=== PATIENT | male | born 1995 | race Asian ===

== ENCOUNTER 2016-07-31 21:37 | Emergency (ER) | payer OTHER ==
[2016-07-31 21:44] VITALS: RESP 16; TEMP 97.9
--- NOTE | 2016-07-31 22:24 | EDPHY ---
H & P Stated Complaint: rectal bleeding/pain Time Seen by Provider: 07/31/16 21:55 HPI/ROS: Chief Complaint: Rectal pain HPI: 21-year-old male who is noticed swelling in his rectal area for past the 4 days which is painful. Also noticed some blood around his stool. Does not have a history of the same. Has a little bit of pain with passing a bowel movement. Does not have a history of extremely hard stools or significant straining with passing a bowel movement. Does not feel constipated or that he is holding his stool in because of the pain. ROS: 10 point Review of Systems is negative except as noted in the HPI. PMH: Acne Medications: Minocycline Allergies no known drug allergies Social History: Positive smoking, no alcohol, no recreational drug use Family History: non-contributory Physical Exam: Gen: Awake, Alert, No Distress HEENT: Nose: no rhinorrhea Eyes: PERRLA, EOMI Mouth: Moist mucosa Neck: Supple, no JVD Chest: nontender, lungs clear to auscultation Heart: S1, S2 normal, no murmur Abd: Soft, non-tender, no guarding Rectal: He has a noticeable hemorrhoids, primarily in the 2 o'clock position. It is swollen but not thrombosed at this time. It is moderately tender to the touch. There is no active bleeding. Back: no CVA tenderness, no midline tenderness Ext: no edema, non-tender Skin: no rash Neuro: CN II-XII intact, Sensation grossly intact, Strength 5/5 in bilateral upper and lower extremities - Personal History Current Tetanus/Diphtheria Vaccine: Unsure - Medical/Surgical History Hx Asthma: No Hx Chronic Respiratory Disease: No Hx Diabetes: No Hx Cardiac Disease: No Hx Renal Disease: No Hx Cirrhosis: No Hx Alcoholism: No Hx HIV/AIDS: No Hx Splenectomy or Spleen Trauma: No Other PMH: PMHx: G6PD deficiency. PSHx: Cholecystectomy - Social History Smoking Status: Current every day smoker Constitutional: Initial Vital Signs Temperature (C) 36.6 C 07/31/16 21:42 Heart Rate 80 07/31/16 21:42 Respiratory Rate 16 07/31/16 21:42 Blood Pressure 138/58 H 07/31/16 21:42 O2 Sat (%) 98 07/31/16 21:42 O2 Delivery Mode Room Air Allergies/Adverse Reactions: aspirin Allergy (Verified 11/18/14 10:27) peanut Allergy (Verified 11/18/14 10:27) G6PD Allergy (Uncoded 11/18/14 10:27) Home Medications: Medication Instructions Recorded Hydrocortisone Acetate [Anucort-Hc] 25 mg RC BID #14 supp.rect 07/31/16 Minocycline HCl 07/31/16 Medical Decision Making - Data Points Medications Given: Discontinued Medications Hydrocodone Bitart/Acetaminophen ([place] 5/325mg Prepack#6) 1 btl TAKEHOME EDNOW ONE Stop: 07/31/16 22:31 Last Admin: 07/31/16 22:50 Dose: 1 btl Departure - Departure Disposition: Home, Routine, Self-Care Clinical Impression: Hemorrhoid Condition: Good Instructions: Hydrocodone/Acetaminophen (By mouth), Hemorrhoids (ED) Additional Instructions: Soak rectal area is Sitz bath as at least 2 to 3 times a day. You may apply rectal medicine twice a day the next week. He may take hydrocodone as needed for pain the next 2 days, then take ibuprofen alternating with acetaminophen. Purchase a donut shaped pillow from the pharmacy tomorrow. Follow up with primary care physician and about a week if symptoms are not improving. Referrals: NONE *PRIMARY CARE P,. [Primary Care Provider] - As per Instructions Cristela Bond MD [Medical Doctor] - As per Instructions Prescriptions: Hydrocortisone Acetate [Anucort-Hc] 25 mg RC BID #14 supp.rect
[2016-07-31] MEDS ORDERED: HYDROCOD/APAP 5/325 PREPACK#6 BTL TAKEHOME ONE (22:30)
[2016-07-31 23:15] VITALS: BP 130/77; PULSE 71; O2SAT 95
== END 2016-07-31 23:17 | disposition home or self-care (01) ==
DX: K64.9 Unspecified hemorrhoids (principal); F17.200 Nicotine dependence, unspecified, uncomplicated; Z91.010 Allergy to peanuts

== ENCOUNTER 2017-01-04 20:15 | Emergency (ER) | payer OTHER ==
[2017-01-04 20:22] VITALS: BP 124/82; PULSE 77; RESP 18; TEMP 98.6; O2SAT 97
[2017-01-04] MEDS ORDERED: HYOSCYAMINE SULFATE 0.125 MG TAB PO ONE (20:35)
[2017-01-04] MEDS ORDERED: LIDOCAINE 2% VISCOUS 15 ML UDCUP PO ONE (20:35)
[2017-01-04] MEDS ORDERED: MAG HYDROX/AL HYDROX/SIMETH 30 ML UDCUP PO ONE (20:35)
--- NOTE | 2017-01-04 21:16 | EDPHY ---
H & P Time Seen by Provider: 01/04/17 20:32 HPI/ROS: CHIEF COMPLAINT: Acid reflux HISTORY OF PRESENT ILLNESS: 22-year-old male presents to the emergency department with burning sensation in his chest. He has a history of acid reflux. He has been taking omeprazole as prescribed for the last 2 weeks with only minimal improvement. 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 He smokes cigarettes and drinks large amount of coffee. Denies any reported trauma. No other chest pain or difficulty breathing. No fevers or chills. No neck or back pain. REVIEW OF SYSTEMS: Constitutional: No fever, no chills. Eyes: No double or blurry vision. ENT: No sore throat. Respiratory: No cough, no shortness of breath. Cardiac: No chest pain. Gastrointestinal: As above. No vomiting or diarrhea. Genitourinary: No dysuria. Musculoskeletal: No neck or back pain. Skin: No rashes. Neurological: No headache. Past Medical/Surgical History: GERD, smoker Social History: [employer] student Smoking Status: Current every day smoker Physical Exam: General Appearance: Alert, no distress. Eyes: Pupils equal and round. Extraocular motions are all intact. ENT: Mouth: Mucous membranes moist. Respiratory: No wheezing, rhonchi, or rales, lungs are clear to auscultation. Cardiovascular: Regular rate and rhythm. Gastrointestinal: Abdomen is soft and nontender, no masses, no rebound or guarding, bowel sounds normal. Neurological: Alert and oriented x 3, cranial nerves II through XII grossly intact Skin: Warm and dry, no rashes. Musculoskeletal: Nontender to palpate along the cervical, thoracic or lumbar spine. Neck is supple. Extremities: Full range of motion and no peripheral edema. Psychiatric: Patient is oriented X 3, there is no agitation. Constitutional: Initial Vital Signs Temperature (C) 37 C 01/04/17 20:18 Heart Rate 77 01/04/17 20:18 Respiratory Rate 18 01/04/17 20:18 Blood Pressure 124/82 H 01/04/17 20:18 O2 Sat (%) 97 01/04/17 20:18 O2 Delivery Mode Room Air Allergies/Adverse Reactions: aspirin Allergy (Verified 11/18/14 10:27) peanut Allergy (Verified 11/18/14 10:27) G6PD Allergy (Uncoded 11/18/14 10:27) Home Medications: Medication Instructions Recorded Esomeprazole Magnesium 01/04/17 Medical Decision Making ED Course/Re-evaluation: 22-year-old male presents to the emergency department with acid reflux. Patient was given a GI cocktail and his symptoms completely resolved. I do not think laboratory studies or imaging studies are indicated. Patient has a normal examination. I encouraged close follow-up with head start teacher. I encouraged him to continue omeprazole, [id number] Pepcid, and to use Maalox as needed. I also encouraged him to stop smoking and to discontinue caffeine and coffee or any other irritants. Differential Diagnosis: Including but not limited to GERD, peptic ulcer disease, pancreatitis, cholecystitis, cholelithiasis - Data Points Medications Given: Discontinued Medications Al Hydroxide/Mg Hydroxide (Maalox Susp) 30 ml PO ONCE ONE Stop: 01/04/17 20:36 Last Admin: 01/04/17 20:50 Dose: 30 ml Hyoscyamine Sulfate (Levsin, Hyomax-Sl) 0.25 mg PO ONCE ONE Stop: 01/04/17 20:36 Last Admin: 01/04/17 20:50 Dose: 0.25 mg Lidocaine (Lidocaine 2% Viscous) 15 ml PO ONCE ONE Stop: 01/04/17 20:36 Last Admin: 01/04/17 20:50 Dose: 15 ml Departure - Departure Disposition: Home, Routine, Self-Care Clinical Impression: GERD (gastroesophageal reflux disease) Qualifiers: Esophagitis presence: esophagitis presence not specified Qualified Code(s): K21.9 - Gastro-esophageal reflux disease without esophagitis Condition: Good Instructions: Gastroesophageal Reflux Disease (ED) Additional Instructions: Stop smoking. You should not drink coffee or eat anything that causes pain in your stomach. You may also try [id number] Pepcid 20 mg daily. You may also use Maalox, [id number], for relief of heartburn especially right before meals. You should follow up with head start teacher. Referrals: Ayan Mock MD [Medical Doctor] - As per Instructions (head start teacher senior telecommunications specialist )
== END 2017-01-04 21:15 | disposition home or self-care (01) ==
DX: K21.9 Gastro-esophageal reflux disease without esophagitis (principal); F17.210 Nicotine dependence, cigarettes, uncomplicated; Z91.010 Allergy to peanuts

== ENCOUNTER 2017-01-16 21:13 | Emergency (ER) | payer OTHER ==
--- NOTE | 2017-01-16 21:56 | CPEKG ---
Heart Rate: 72 RR Interval: 833 P-R Interval: 136 QRSD Interval: 94 QT Interval: 360 QTC Interval: 394 P [place]: 67 QRS [place]: 78 T Wave [place]: 55 EKG Severity - NORMAL ECG - EKG Impression: SINUS RHYTHM Electronically Signed By: Ashley Keene 16-Jan-2017 23:06:02
[2017-01-16] MEDS ORDERED: LIDOCAINE 2% VISCOUS 15 ML UDCUP PO ONE (22:14)
[2017-01-16] MEDS ORDERED: FAMOTIDINE 20 MG/NACL 50 ML IV ONE (22:14)
[2017-01-16] MEDS ORDERED: MAG HYDROX/AL HYDROX/SIMETH 30 ML UDCUP PO ONE (22:14)
[2017-01-16] MEDS ORDERED: PANTOPRAZOLE SODIUM 40 MG VIAL IVP ONE (22:15)
--- NOTE | 2017-01-16 22:22 | EDPHY ---
H & P Time Seen by Provider: 01/16/17 21:41 HPI/ROS: HPI Heartburn, chest discomfort. 22-year-old male by private vehicle. This patient has a history of esophageal reflux. He has a appointment to see Dr. Mitchell at [facility] on Saturday of next week. He presents complaining of typical burning sensation radiating up from his stomach into his esophagus. He has had this for months. He has been taking oral Pepcid but with no relief. He reports that he was on a proton pump inhibitor a while back but has stopped taking this medication. No vomiting. No fever. No other complaints. ROS: Constitutional: No fever, no chills. No weakness. Eyes: No discharge. No changes in vision. ENT: No sore throat. No nasal congestion or rhinorrhea. Respiratory: No cough. No shortness of breath. Cardiac: As above, no palpitations. Gastrointestinal: No abdominal pain, no vomiting, no diarrhea. As above. Genitourinary: No hematuria. No dysuria or increased frequency with urination. Musculoskeletal: No back pain. No neck pain. No myalgias or arthralgias. Skin: No rashes. Neurological: No headache. No focal weakness or altered sensation. Past medical history: Cholecystectomy, G6 PD deficiency. As above. Social history: Student [employer]. Nonsmoker. Denies alcohol. Physical Exam: General Appearance: Alert, no distress. This patient is responding to questions appropriately and in full sentences. This patient appears well- hydrated and well-nourished. Eyes: Pupils equal and round no pallor or injection. No lid edema, erythema or injection. Respiratory: There are no retractions, lungs are clear to auscultation with good air movement bilaterally. Cardiovascular: Regular rate and rhythm. No murmur. Gastrointestinal: Abdomen is soft and nontender, no masses, bowel sounds normal. No focal tenderness at McBurney's point. No Tapia sign. Neurological: Motor sensory function is grossly intact. Cranial nerves are normal. Gait is normal. Skin: Warm and dry, no rashes. Musculoskeletal: Neck is supple and nontender. Extremities are symmetrical. All joints range without pain or impingement. Psychiatric: No agitation. No depression. Database: EKG: EKG time is 9:54 p.m.; EKG shows a narrow complex normal sinus rhythm with a ventricular rate of 72. The DE, QRS, QT intervals are within normal limits. There are no ST-T wave changes indicative of ischemic or injury pattern. No evidence of right heart strain. Interpreted by me. Imaging: Chest x-ray PA and lateral; the cardiac mediastinal silhouette is unremarkable. No evidence of infiltrate or pneumothorax. No acute cardiopulmonary disease process noted. Interpreted by me. Procedures: Emergency department course: IV placed in triage. Vital signs reviewed and are normal. After my evaluation the patient was given 40 mg of IV Protonix, 20 mg of IV Pepcid and a GI cocktail. 10:45 p.m., patient re-evaluated. Resting comfortably at this time. He reports feeling better. Results of his x-ray and EKG discussed with him. He feels comfortable going home at this time. I will prescribe him Protonix. He will follow up with his stogy maker as scheduled on Saturday. Return to emergency department precautions reviewed with him. All of his questions were answered. He was discharged in good condition. Differential Diagnosis: The differential diagnosis on this patient includes but is not limited to GERD. Acute coronary syndrome, pneumomediastinum, aortic dissection, pulmonary embolism, myocarditis, pericarditis unlikely. This represents a partial list of diagnoses considered. These considerations are based on history, physical exam, past history, reassessment and diagnostic testing. Smoking Status: Current every day smoker Constitutional: Initial Vital Signs Temperature (C) 36.7 C 01/16/17 21:17 Heart Rate 61 01/16/17 21:17 Respiratory Rate 16 01/16/17 21:17 Blood Pressure 129/63 H 01/16/17 21:17 O2 Sat (%) 99 01/16/17 21:17 O2 Delivery Mode Room Air Allergies/Adverse Reactions: aspirin Allergy (Verified 11/18/14 10:27) peanut Allergy (Verified 11/18/14 10:27) G6PD Allergy (Uncoded 11/18/14 10:27) Home Medications: Medication Instructions Recorded Pantoprazole Sodium [Protonix] 40 mg PO DAILY #30 tab 01/16/17 Pepcid 01/16/17 Medical Decision Making - Diagnostics Imaging Results: Imaging Impressions Chest X-Ray 01/16/17 21:42 Impression: Normal. No acute process. Departure - Departure Disposition: Home, Routine, Self-Care Clinical Impression: GERD (gastroesophageal reflux disease) Condition: Good Instructions: Gastroesophageal Reflux Disease (ED) Additional Instructions: Read and follow provided instructions. Follow-up with your stogy maker as scheduled on Saturday for re-evaluation and ongoing management of your esophageal reflux. Take medication as prescribed. Return to the emergency department for worsening symptoms or other serious concerns. Referrals: Ayan Mock MD [Medical Doctor] - As per Instructions Prescriptions: Pantoprazole Sodium [Protonix] 40 mg PO DAILY #30 tab
[2017-01-16 22:53] VITALS: BP 115/77; PULSE 69; RESP 14; TEMP 97.9; O2SAT 96
== END 2017-01-16 22:53 | disposition home or self-care (01) ==
DX: K21.9 Gastro-esophageal reflux disease without esophagitis (principal); F17.200 Nicotine dependence, unspecified, uncomplicated; Z91.010 Allergy to peanuts
CPT/HCPCS: 96365

== ENCOUNTER 2017-06-06 21:00 | Emergency (ER) | payer OTHER ==
[2017-06-06 21:06] VITALS: BP 140/70
--- NOTE | 2017-06-06 21:30 | EDPHY ---
H & P Time Seen by Provider: 06/06/17 21:15 HPI/ROS: CHIEF COMPLAINT: Right-side flank pain, right thumb pain HISTORY OF PRESENT ILLNESS: The patient is a 22 y/o male complaining of right sided back pain, onset 2 days ago. He awoke 2 days ago with urinary frequency and right sided back pain. The urinary frequency resolved but the pain has worsened over the past 2 days. The right flank pain worsens with coughing, sneezing, and other movements. He denies pain to palpation. He denies recent trauma. He denies any hematuria, diarrhea, urinary incontinence, abdominal pain , or any other associated symptoms. In addition, he has had ongoing pain in his right thumb for several weeks after a fall. He was not seen after the fall. Pain occurs when moving his thumb. He denies swelling or any other associated symptoms. REVIEW OF SYSTEMS: A 10 point review of systems was performed and is negative with the exception of the elements mentioned in the history of present illness. Past Medical/Surgical History: 1. Cholecystectomy 2. G6PD deficiency Social History: Lives in [place], student at [employer], smoker Smoking Status: Current every day smoker Physical Exam: General Appearance: Alert, pleasant Eyes: Pupils equal and round ENT, Mouth: Mucous membranes moist Neck: Normal inspection Respiratory: normal respiratory rate/effort Cardiovascular: Regular rate and rhythm Gastrointestinal: Abdomen is soft and non-tender Back: Normal inspection, tender over the the right paraspinous musculature, no CVAT Neurological: A&O, nonfocal exam Skin: Warm and dry Extremities: right thumb: normal inspection, tenderness over right IP joint, pain with IP ROM, no compression tenderness, no snuffbox tenderness Psychiatric: Mood and affect normal Constitutional: Initial Vital Signs Temperature (C) 36.8 C 06/06/17 21:04 Heart Rate 88 06/06/17 21:04 Respiratory Rate 16 06/06/17 21:04 Blood Pressure 140/70 H 06/06/17 21:04 O2 Sat (%) 98 06/06/17 21:04 O2 Delivery Mode Room Air Allergies/Adverse Reactions: aspirin Allergy (Verified 11/18/14 10:27) peanut Allergy (Verified 11/18/14 10:27) G6PD Allergy (Uncoded 11/18/14 10:27) Home Medications: Medication Instructions Recorded NK [No Known Home Meds] 06/06/17 Medical Decision Making - Diagnostics Imaging Results: right thumb xray: NAD Imaging: I viewed and interpreted images myself ED Course/Re-evaluation: The patient presents with back pain with movement, coughing, or sneezing. No pain to palpation. In addition, he has pain in his right IP joint after a fall several weeks ago. Plan for X-ray of thumb and urinalysis. Urinalysis is negative. No evidence of UTI/pyelo/kidney stone. X-ray is normal. No evidence of fx. He will return home with instructions to take ibuprofen for musculoskeletal back pain and thumb sprain. Follow up with his PCP for continued symptoms. The patient agrees to this course of action. Departure - Departure Disposition: Home, Routine, Self-Care Clinical Impression: Low back strain Qualifiers: Encounter type: initial encounter Qualified Code(s): S39.012A - Strain of muscle, fascia and tendon of lower back, initial encounter Thumb contusion Qualifiers: Encounter type: initial encounter Damage to nail status: without damage Laterality: right Qualified Code(s): S60.011A - Contusion of right thumb without damage to nail, initial encounter Condition: Good Instructions: Low Back Strain (ED) Additional Instructions: 1. Take 600 mg ibuprofen with food every 8 hours as needed for pain. 2. Follow up with your primary care provider for continued symptoms in 2 to 3 days. 3. Return to the emergency department for any worsening of condition. Referrals: [facility],. [Clinic] - As per Instructions Logan Tejeda MD [Medical Doctor] - As per Instructions Report Scribed for: Regla Junior Report Scribed by: Lara Garcia Date of Report: 06/06/17 Time of Report: 22:03 Physician Review and Approval Statement: 06/06/17 22:04 Portions of this note were transcribed by a medical field representative. I personally performed a history, physical exam, medical decision making, and confirmed accuracy of information the transcribed note.
== END 2017-06-06 22:14 | disposition home or self-care (01) ==
DX: S39.012A Strain of muscle, fascia and tendon of lower back, initial encounter (principal); S60.011A Contusion of right thumb without damage to nail, initial encounter; F17.200 Nicotine dependence, unspecified, uncomplicated; Z90.49 Acquired absence of other specified parts of digestive tract; Z91.010 Allergy to peanuts; W18.39XA Other fall on same level, initial encounter

== ENCOUNTER 2017-07-25 20:36 | Emergency (ER) | payer OTHER ==
--- NOTE | 2017-07-25 20:46 | EDPHY ---
H & P Stated Complaint: back pain, nausea, generalized weakness Time Seen by Provider: 07/25/17 20:45 HPI/ROS: HPI: This is a 22-year-old male who presents with Chief Complaint: back pain, nausea, generalized weakness Location: Abdomen Quality: Nausea, vomiting, diarrhea Duration: 2 days Signs and Symptoms: no fever, + nausea, + vomiting, no hematemesis, no blood in stool, no abdominal bloating, + diarrhea, no back pain, no urinary symptoms, no testicular/groin pain, no indigestion, no chest pain, no shortness of breath Timing: Improving Severity: Moderate Context: Patient is the [employer] student presents yesterday with sudden onset of nausea, body aches and chills accompanied by 2 episodes of vomiting yesterday and 1 episode of vomiting today. Patient reports that he had 2 loose stools yesterday and 1 loose stool today. Due to his nausea he is only able to drink 1 cup of water. He denies any recent foreign travel. Denies any recent antibiotic use. Patient reports that he has a very strict vegan diet and does not believe that he has had any food borne illnesses. Denies any urinary symptoms. Last urination was approximately 2 hr prior to arrival in the emergency room. Denies hematuria/penile discharge. Modifying Factors: None Comment: ROS: see HPI Constitutional: No fever, no chills, no weight loss Eyes: No blurred vision Respiratory: No shortness of breath, no cough Cardiovascular: No chest pain, no palpitations Gastrointestinal: + nausea, + vomiting, + diarrhea, no hematemesis, no blood in stool Genitourinary: No dysuria, no blood in urine Extremities: No myalgias, no edema Neurologic: No weakness, no numbness Skin: No rashes, no petechiae Hematologic: No bruising, no bleeding MEDICAL/SURGICAL/SOCIAL HISTORY: PMHx: G6PD deficiency PSHx: Cholecystectomy Social history: [employer]. Family history noncontributory. CONSTITUTIONAL: Extremely well-appearing young adult male, awake and alert, no obvious distress HEENT: Atraumatic and normocephalic, PERRL, EOMI. Nares patent; no rhinorrhea; no nasal mucosal edema. Tympanic membranes clear. Oropharynx clear, no exudate and moist pink mucosa. Airway patent. No lymphadenopathy. No meningismus. Cardiovascular: Normal S1/S2, regular rate, regular rhythm, without murmur rub or gallop. PULMONARY/CHEST: Symmetrical and nontender. Clear to auscultation bilaterally. Good air movement. No accessory muscle usage. ABDOMEN: Soft, nondistended, nontender, no rebound, no guarding, no peritoneal signs, no masses or organomegaly. No CVAT. EXTREMITIES: 2/2 pulses, strength 5/5, no deformities, no clubbing, no cyanosis or edema. NEUROLOGICAL: no focal neuro deficits. GCS 15. SKIN: Warm and dry, no erythema. no rash. Good capillary refill. Source: Patient, Old records Exam Limitations: No limitations - Personal History Current Tetanus Diphtheria and Acellular Pertussis (TDAP): Yes Tetanus Vaccine Date: 2014 - Medical/Surgical History Hx Asthma: No Hx Chronic Respiratory Disease: No Hx Diabetes: No Hx Cardiac Disease: No Hx Renal Disease: No Hx Cirrhosis: No Hx Alcoholism: No Hx HIV/AIDS: No Hx Splenectomy or Spleen Trauma: No Other PMH: PMHx: G6PD deficiency. PSHx: Cholecystectomy - Social History Smoking Status: Current every day smoker Constitutional: Initial Vital Signs Temperature (C) 37.1 C 07/25/17 20:39 Heart Rate 81 07/25/17 20:39 Respiratory Rate 20 07/25/17 20:39 Blood Pressure 130/98 H 07/25/17 20:39 O2 Sat (%) 98 07/25/17 20:39 O2 Delivery Mode Room Air Allergies/Adverse Reactions: aspirin Allergy (Verified 07/25/17 20:39) peanut Allergy (Verified 07/25/17 20:39) G6PD Allergy (Uncoded 11/18/14 10:27) Home Medications: Medication Instructions Recorded Promethazine HCl 25 mg PO Q6 PRN #12 tablet 07/25/17 Medical Decision Making ED Course/Re-evaluation: Labs, IV fluids, IV medications given Vital signs reviewed upon arrival in show no systemic signs. Afebrile. Patient's abdomen is soft and nontender. Doubt surgical abdomen. Will not order abdominal imaging. 2054: Given 1 L normal saline and IV promethazine 12.5 mg 2136: Labs reviewed. No signs of leukocytosis/anemia/BRIANNA/elevated LFTs/ electrolyte imbalance/pancreatitis. 2217: Passed p.o. Trial. Reassessed abdomen continues to be soft and nontender. Discharged home with supportive care. Given prepack for Zofran and prescription for Phenergan. This patient was seen under the supervision of my secondary supervising physician. I evaluated care for this patient independently. Differential Diagnosis: Abdominal pain including but not limited to appendicitis, cholecystitis, gastritis and urinary tract infection. - Data Points Laboratory Results: Laboratory Results 07/25/17 20:55 07/25/17 20:55 07/25/17 07/25/17 20:55 20:55 WBC 5.16 10^3/uL 10^3/uL (3.80-9.50) RBC 5.51 10^6/uL 10^6/uL (4.40-6.38) Hgb 16.0 g/dL g/dL (13.7-17.5) Hct 48.5 % % (40.0-51.0) MCV 88.0 fL fL (81.5-99.8) MCH 29.0 pg pg (27.9-34.1) MCHC 33.0 g/dL g/dL (32.4-36.7) RDW 12.1 % % (11.5-15.2) Plt Count 189 10^3/uL 10^3/uL (150-400) MPV 11.5 fL fL (8.7-11.7) Neut % (Auto) 57.1 % % (39.3-74.2) Lymph % (Auto) 34.5 % % (15.0-45.0) Carroll % (Auto) 6.2 % % (4.5-13.0) Eos % (Auto) 1.4 % % (0.6-7.6) Baso % (Auto) 0.6 % % (0.3-1.7) Nucleat RBC Rel Count 0.0 % % (0.0-0.2) Absolute Neuts (auto) 2.95 10^3/uL 10^3/uL (1.70-6.50) Absolute Lymphs (auto) 1.78 10^3/uL 10^3/uL (1.00-3.00) Absolute Monos (auto) 0.32 10^3/uL 10^3/uL (0.30-0.80) Absolute Eos (auto) 0.07 10^3/uL 10^3/uL (0.03-0.40) Absolute Basos (auto) 0.03 10^3/uL 10^3/uL (0.02-0.10) Absolute Nucleated RBC 0.00 10^3/uL 10^3/uL (0-0.01) Immature Gran % 0.2 % % (0.0-1.1) Immature Gran # 0.01 10^3/uL 10^3/uL (0.00-0.10) Sodium 139 mEq/L mEq/L (135-145) Potassium 4.4 mEq/L mEq/L (3.3-5.0) Chloride 101 mEq/L mEq/L (97-110) Carbon Dioxide 28 mEq/l mEq/l (22-31) Anion Gap 10 mEq/L mEq/L (8-16) BUN 9 mg/dL mg/dL (7-23) Creatinine 0.8 mg/dL mg/dL (0.7-1.3) Estimated GFR > 60 Glucose 121 mg/dL H mg/dL (70-100) Calcium 9.8 mg/dL mg/dL (8.5-10.4) Total Bilirubin 1.2 mg/dL mg/dL (0.1-1.4) Conjugated Bilirubin 0.3 mg/dL mg/dL (0.0-0.5) Unconjugated Bilirubin 0.9 mg/dL mg/dL (0.0-1.1) AST 19 IU/L IU/L (17-59) ALT 44 IU/L IU/L (21-72) Alkaline Phosphatase 67 IU/L IU/L (38-126) Total Protein 7.3 g/dL g/dL (6.3-8.2) Albumin 4.4 g/dL g/dL (3.5-5.0) Lipase 37 IU/L IU/L (23-300) Medications Given: Discontinued Medications Sodium Chloride (Ns) 1,000 mls @ 0 mls/hr IV EDNOW ONE; Wide Open PRN Reason: Protocol Stop: 07/25/17 20:53 Last Admin: 07/25/17 20:55 Dose: 1,000 mls Ondansetron HCl (Zofran Odt 4 Mg Prepack#2) 1 btl TAKEHOME EDNOW ONE Stop: 07/25/17 20:57 Last Admin: 07/25/17 22:28 Dose: 1 btl Promethazine HCl (Phenergan) 12.5 mg IVP EDNOW ONE Stop: 07/25/17 20:53 Last Admin: 07/25/17 20:56 Dose: 12.5 mg Departure - Departure Disposition: Home, Routine, Self-Care Clinical Impression: Gastroenteritis Condition: Good Instructions: Ondansetron (By mouth), Gastroenteritis (ED) Additional Instructions: Consume a minimum of 8-10 glasses of water or electrolyte fluid replacement drinks that include Gatorade, Powerade, Pedialyte. Eat a bland diet for the next 48 hours and then slowly advance as tolerated. Take promethazine 1 tab every 6 hours as needed for nausea, vomiting. Return to the Emergency Room if symptoms do not resolve in the next 72 hours, you spike a fever > 102 F, or experience intractable abdominal pain/nausea/ vomiting. Referrals: [facility],. [Clinic] - 2-3 days, if not improved Prescriptions: Promethazine HCl 25 mg PO Q6 PRN #12 tablet PRN Reason: Nausea/Vomiting, Use 1st
[2017-07-25] MEDS ORDERED: PROMETHAZINE HCL 25 MG/ML INJ IVP ONE (20:52)
[2017-07-25] MEDS ORDERED: NS 1,000 ML IV ONE (20:52)
[2017-07-25] MEDS ORDERED: ONDANSETRON 4MG PREPACK#2 BTL TAKEHOME ONE (20:56)
[2017-07-25 21:06] LABS: PLATELET COUNT 189 10^3/uL (150-400)
[2017-07-25 22:30] VITALS: BP 131/68
== END 2017-07-25 22:43 | disposition home or self-care (01) ==
DX: K52.9 Noninfective gastroenteritis and colitis, unspecified (principal); E86.9 Volume depletion, unspecified; F17.200 Nicotine dependence, unspecified, uncomplicated; Z91.010 Allergy to peanuts
CPT/HCPCS: 96374; J2550

== ENCOUNTER 2017-11-15 18:51 | Emergency (ER) | payer OTHER ==
[2017-11-15 18:56] VITALS: BP 128/67
--- NOTE | 2017-11-15 19:17 | EDPHY ---
HPI/HX/ROS/PE/MDM Narrative: CHIEF COMPLAINT: Sore throat, nasal and ear congestion HISTORY OF PRESENT ILLNESS: The patient is a 22 y/o male with a history of G6PD deficiency complaining of nasal and ear congestion associated with a sore throat, onset 2 days. He has taken vitamin C, cough drops, and ibuprofen with mild relief of his symptoms. As his symptoms have not improved, he decided to present to the emergency department. No fever, chills, chest pain, shortness of breath, palpitations, vomiting, diarrhea, urinary complaints, headache, lightheadedness. REVIEW OF SYSTEMS: A comprehensive 10 system review of systems was reviewed and is otherwise negative aside from elements mentioned in the history of present illness. PAST MEDICAL HISTORY: G6PD deficiency, cholecystectomy SOCIAL HISTORY: Student at , single, smoker VITAL SIGNS: see nurse's notes. GENERAL: Sounds congested, well-developed, well-nourished, in no acute distress. HEENT: Atraumatic Eyes: PERRL, EOMI, no conjunctival injection. Ears: TM clear bilaterally. Nose: No discharge. Mouth: moist mucous membranes. Pharynx: Mild erythema, no exudates, no swelling, no abscess. Uvula is midline. NECK: Supple, no adenopathy, no meningismus, no tenderness. Negative Kernig's and Brudzinski's. LUNGS: Clear to auscultation bilaterally, no wheezes, rhonchi or rales. CARDIAC: Regular rate and rhythm, no rubs, murmurs or gallops. ABDOMEN: Soft, nontender, bowel sounds normal. BACK: No CVA tenderness. EXTREMITIES: Normal, no edema, FROM. NEURO: Alert and oriented, grossly nonfocal. SKIN: Warm and dry, no rash. PSYCHIATRIC: Normal mentation, no agitation. Portions of this note were transcribed by a emergency medical tech. I, Dr Sanjuana Navarro , personally performed a history, physical exam, medical decision making, and confirmed the accuracy of the information in the transcribed note. ED Course: The patient is a 22 y/o male with a history of G6PD deficiency presenting with nasal and ear congestion associated with a sore throat, onset 2 days.On exam he sounds congested and has an erythematic throat. There are no exudates or adenopathy. His ears and lungs are clear bilaterally and strep test ordered. 2000: Patient's rapid strep test is negative. Reassessed patient and discussed strep test results. I have advised him to take Tylenol or Ibuprofen, an antihistamine, and a decongestant. Return precautions provided; patient is comfortable with this plan. MDM: Differential diagnosis for the patient's sore throat was considered including but not limited to viral pharyngitis, bacterial pharyngitis, tonsillitis, tonsillar abscess, peritonsillar abscess, foreign body, epiglottitis, bacterial tracheitis. - Data Points Laboratory Results: 11/15/17 Unknown Group A Strep DNA NEGATIVE (NEGATIVE) General Time Seen by Provider: 11/15/17 19:15 Initial Vital Signs: Initial Vital Signs Temperature (C) 37.1 C 11/15/17 18:54 Heart Rate 96 11/15/17 18:54 Respiratory Rate 16 11/15/17 18:54 Blood Pressure 128/67 H 11/15/17 18:54 O2 Sat (%) 95 11/15/17 18:54 O2 Delivery Mode Room Air Allergies/Adverse Reactions: aspirin Allergy (Verified 11/15/17 18:54) peanut Allergy (Verified 11/15/17 18:54) G6PD Allergy (Uncoded 11/15/17 18:54) Departure - Departure Disposition: Home, Routine, Self-Care Clinical Impression: Acute upper respiratory infection Acute pharyngitis Qualifiers: Pharyngitis/tonsillitis etiology: unspecified etiology Qualified Code(s): J02.9 - Acute pharyngitis, unspecified Condition: Good Instructions: Upper Respiratory Infection (ED) Additional Instructions: Mainstay of therapy will be to drink plenty of fluids, control your symptoms with [id number] medications, and get plenty of rest. If you have a fever, use Tylenol or ibuprofen. You may take both at the same time if needed. You may also take Tylenol and ibuprofen for a headache or sore throat. Adult Pain & Fever Control: We recommend Acetaminophen (Tylenol) and Ibuprofen (Motrin, Advil) for pain and fever control. When fever is high or pain severe, both drugs can be used at the same time, but at different intervals. Please note the time differences. Your dose is: Acetaminophen [650-1000]mg every 4 to 6 hours Ibuprofen [600]mg every [8] hours with food. If you have a runny nose, I recommend an antihistamine. Antihistamines are often sedating. Claritin and Doreen are nonsedating antihistamines. If you are congested, take a decongestant. Afrin nasal spray will help a few have significant sinus congestion. Do not use this for more than 3 days in a row. Flonase nasal spray is also helpful for nasal congestion. If you have a sore throat, take Tylenol, or ibuprofen. Throat lozenges, throat sprays, or salt water gargles may also be helpful. Return to emergency department or seek care urgently if you're symptoms are worsening despite the above treatment, if you develop shortness of breath, if you're unable to drink fluids secondary to throat pain or other issues, if you developed, vomiting, diarrhea, or other concerns. Referrals: [facility],. [Clinic] - As per Instructions Report Scribed for: Sanjuana Navarro Report Scribed by: Nicci Tolbert Date of Report: 11/15/17 Time of Report: 19:21
== END 2017-11-15 20:05 | disposition home or self-care (01) ==
DX: J02.9 Acute pharyngitis, unspecified (principal)

== ENCOUNTER 2017-12-10 10:55 | Emergency (ER) | payer OTHER ==
--- NOTE | 2017-12-10 12:33 | EDPHY ---
General Time Seen by Provider: 12/10/17 12:26 Narrative: CHIEF COMPLAINT: Cough HISTORY OF PRESENT ILLNESS: Patient presents by private vehicle with complaints of cough and right-sided painful cough. Cough has been present for nearly 2 weeks. Gradual onset. Constant duration. No chest pain or shortness of breath but he does have a painful right-sided cough. He has no recent travel, trauma or surgery. He has no history of venous thrombolic event. No testosterone use. No headache, neck pain, fever or body aches. No sore throat. No urinary complaints. No abdominal pain. He has not been taking any medications and thus has no modifying factors. No other associated complaints. REVIEW OF SYSTEMS: 10 systems were reviewed and negative with the exception of the elements mentioned in the history of present illness. PCP: None SPECIALISTS: None PAST MEDICAL HISTORY: G6PD PAST SURGICAL HISTORY: Cholecystectomy SOCIAL HISTORY: Occasional tobacco marijuana use. No alcohol use. [employer] ([place], [place]) student. Originally from [facility] FAMILY HISTORY: Noncontributory EXAMINATION: General Appearance: Alert, no distress. Ambulatory and well-appearing. Conversing in full sentences. Head: normocephalic, atraumatic Eyes: Pupils equal and round, no conjunctival pallor or injection ENT, Mouth: Mucous membranes moist. No posterior erythema or edema. No exudate. Uvula is midline. Neck: Normal inspection, supple, non-tender Respiratory: Mild scattered rhonchi. No wheezing. No crackles. No diminishment. No consolidation Cardiovascular: Regular rate and rhythm Neurological: A&O, nonfocal, normal gait Skin: Warm and dry, no rash Extremities: Nontender, no pedal edema Psychiatric: Mood and affect normal DIFFERENTIAL DIAGNOSES: Including but not limited to MDM: 12:25 p.m. Cough for 2 weeks with right sided painful cough. No chest pain at rest. No shortness of breath. Vital signs are within normal limits. No hypoxemia. No tachycardia. He is resting comfortably with normal work of breathing. He is perc negative and has no chest pain. I have ordered a chest x-ray for further delineation. 12:50 p.m. Acute bronchitis with no evidence of pneumonia. We discussed anti- inflammatories, zyjo-tuc-naaosph cough medicine and short course of antibiotics as he has been symptomatic for nearly 2 weeks. We discussed strict ED precautions. We discussed follow up with primary care physician. I have answered all his questions. And he is discharged home stable condition. SUPERVISION: This patient was independently evaluated without direct involvement of or examination by the attending physician. CONSULTATION: None - Diagnostics Imaging Results: Imaging Impressions Chest X-Ray 12/10/17 12:25 Impression: Normal chest. - History Smoking Status: Current every day smoker - Objective Vital Signs: Initial Vital Signs Temperature (C) 97.7 F 12/10/17 11:01 Heart Rate 80 12/10/17 11:01 Respiratory Rate 16 12/10/17 11:01 Blood Pressure 111/56 L 12/10/17 11:01 O2 Sat (%) 97 12/10/17 11:01 O2 Delivery Mode Room Air Allergies/Adverse Reactions: aspirin Allergy (Verified 11/15/17 18:54) peanut Allergy (Verified 11/15/17 18:54) G6PD Allergy (Uncoded 11/15/17 18:54) Home Medications: Medication Instructions Recorded Azithromycin [Zithromax] 250 mg PO DAILY #6 tab 12/10/17 Benzonatate [Tessalon Pearles (RX)] 100 mg PO Q8 PRN #15 cap 12/10/17 Departure - Departure Disposition: Home, Routine, Self-Care Clinical Impression: Acute bronchitis Qualifiers: Bronchitis organism: unspecified organism Qualified Code(s): J20.9 - Acute bronchitis, unspecified Condition: Good Instructions: Acute Bronchitis (ED) Additional Instructions: 1. Medications as prescribed to completion 2. Rkqn-ivl-wnnretl dextromethorphan as instructed on the bottle for cough as needed 3. Usxn-mts-svnuraj ibuprofen 600 mg every 8 hr as needed 4. Return to emergency depart for any chest pain, shortness of breath, fever or worsening symptoms Referrals: Mae Kidd MD [Medical Doctor] - As per Instructions Physician,Emergency DeptMD [Medical Doctor] - As per Instructions Prescriptions: Azithromycin [Zithromax] 250 mg PO DAILY #6 tab Benzonatate [Tessalon Pearles (RX)] 100 mg PO Q8 PRN #15 cap PRN Reason: Cough, Mild
[2017-12-10 12:52] VITALS: BP 124/67
== END 2017-12-10 12:58 | disposition home or self-care (01) ==
DX: J20.9 Acute bronchitis, unspecified (principal); F17.200 Nicotine dependence, unspecified, uncomplicated

== ENCOUNTER 2018-04-14 18:17 | Emergency (ER) | payer OTHER ==
[2018-04-14 18:23] VITALS: BP 125/69
--- NOTE | 2018-04-14 18:40 | EDPHY ---
H & P Time Seen by Provider: 04/14/18 18:36 HPI/ROS: CHIEF COMPLAINT: Right thumb avulsion HISTORY OF PRESENT ILLNESS: 23-year-old immunocompetent male with up-to-date tetanus sustained accidental skin avulsion to his right thumb yesterday evening when he was working with sharp plastic edge. No glass. No fractured components of object. No paresthesia. No erythema. PHYSICAL EXAM (Prior to examination, patient consented to physical exam, hands were washed and my usual and customary physical exam procedures followed) 1) GENERAL: Well-developed, well-nourished, alert and oriented. Appears to be in no acute distress. 2) HEAD: Normocephalic 3) HEENT: sclera anicteric 4) LUNGS: Breathing comfortably. 5) SKIN: Right thumb distal phalanx 5 mm x 5 mm hemostatic skin avulsion. No signs of infection. Negative kanavel. Flexor extensor function at the MCP and IP intact. Full sensation distally with two-point discrimination intact. No underlying osseous discomfort. No malrotation. Normal cascading of digits. Smoking Status: Former smoker Constitutional: Initial Vital Signs Temperature (C) 36.7 C 04/14/18 18:21 Heart Rate 70 04/14/18 18:21 Respiratory Rate 17 04/14/18 18:21 Blood Pressure 125/69 H 04/14/18 18:21 O2 Sat (%) 98 04/14/18 18:21 O2 Delivery Mode Room Air Allergies/Adverse Reactions: aspirin Allergy (Verified 04/14/18 18:23) peanut Allergy (Verified 04/14/18 18:23) G6PD Allergy (Uncoded 11/15/17 18:54) Home Medications: Medication Instructions Recorded Famotidine 04/14/18 MDM/Departure - [facility] ED Course/Re-evaluation: This immunocompetent patient with up-to-date tetanus is a 5 mm x 5 mm hemostatic skin avulsion right thumb distal phalanx. No signs of infection. Negative kanavel. Wound has been dressed with antibiotic ointment. No indication for wound closure or x-ray. Usual and customary wound precautions instructions provided at discharge. Care of patient under supervision of primary supervising physician Dr Shah. - Depart Disposition: Home, Routine, Self-Care Clinical Impression: Avulsion of skin of right thumb Condition: Good Instructions: Skin Avulsion (ED) Additional Instructions: Return to the ER if you develop redness, swelling, discharge, warmth to the wound, red streaks going up your arm, or any other symptoms that concern you. Referrals: [facility]. [Clinic] - 2-3 days, call for appt.
== END 2018-04-14 19:02 | disposition home or self-care (01) ==
DX: S61.001A Unspecified open wound of right thumb without damage to nail, initial encounter (principal); W26.8XXA Contact with other sharp object(s), not elsewhere classified, initial encounter; Y92.9 Unspecified place or not applicable; Y93.9 Activity, unspecified; Y99.9 Unspecified external cause status